=== PATIENT | male | born 1995 | race Caucasian/White ===

== ENCOUNTER 2016-07-17 16:14 | Emergency (ER) | payer MEDICAID ==
[2016-07-17 15:51] LABS: BASOPHIL% 0.9 % (0-2.5); EOSINOPHIL% 0.8 % (0.0-7.0); HEMATOCRIT 42.5 % (38.0-50.0); HEMOGLOBIN 14.2 gm/dL (13.0-16.0); LYMPHOCYTE# 1.5 X10e3 (1.0-3.5); LYMPHOCYTE% 30.3 % (17.0-45.0); MEAN CELL VOLUME 91.3 FL (83-96); MEAN CORPUSCULAR HEMOGLOBIN 30.6 PG (28-34); MEAN CORPUSCULAR HGB CONC 33.5 g/dL (30-36); MEAN PLATELET VOLUME 9.7 FL (6.5-11.5); MONOCYTE# 0.4 X10e3 (0-1.0); MONOCYTE% 7.3 % (3.0-12.0); NEUTROPHIL% 60.7 % (40-75); PLATELET COUNT 180 X10e3 (140-420); RED BLOOD COUNT 4.66 X10e (3.90-5.60); WHITE BLOOD COUNT 4.9 X10e3 (4.0-10.5)
[2016-07-17 15:52] LABS: ARTERIAL BLOOD GAS HCO3 27.2 mmol/L; ARTERIAL BLOOD GAS PCO2 47.4 mmHg (35.0-45.0)
[2016-07-17 15:53] LABS: ARTERIAL BLD GAS O2 SATURATION 53.1 % (90.0-100.0); ARTERIAL BLOOD GAS CARBOXY HB 2.5 %sat (0.0-9.0); ARTERIAL BLOOD GAS MET HB 1.8 %sat (0.0-2.0); ARTERIAL DRAW? NO
[2016-07-17 15:53] LABS: DIFF IND NO
[~2016-07-17 16:14] MED LIST: NOVOLOG100 U/M2 SUBQ; TRESIBA FL100 UNIT/1 SUBQ
[2016-07-17 16:15] LABS: ALBUMIN SERUM 4.7 g/dL (3.5-5.0); ALKALINE PHOSPHATASE 57 U/L (32-92); ALT (SGPT) 19 U/L (10-40); AST (SGOT) 23 U/L (10-42); BILIRUBIN, DIRECT 0.2 mg/dL (0.0-0.2); BILIRUBIN,INDIRECT 0.7 mg/dL (0.0-0.9); BILIRUBIN,TOTAL 0.9 mg/dL (0.2-2.0); BLOOD UREA NITROGEN 19 mg/dL (9-23); BUN/CREATININE RATIO 15.83; CALCIUM SERUM 8.9 mg/dL (8.4-10.2); CARBON DIOXIDE 27 mmol/L (22-31); CHLORIDE 100 mmol/L (100-111); CREATININE SERUM 1.2 mg/dL (0.6-1.4); GLOM FILT RATE Estimated 86.6 mL/min (>60); GLUCOSE FASTING 269 mg/dL (70-110); POTASSIUM 3.8 mmol/L (3.5-5.1); PROTEIN TOTAL SERUM 7.4 g/dL (6.0-8.3); SODIUM 137 mmol/L (135-145)
[2016-07-17 17:20] LABS: URINE APPEARANCE CLEAR; URINE BILIRUBIN NEG (NEG); URINE BLOOD NEG (NEG); URINE COLOR YELLOW; URINE GLUCOSE 300 MG/DL (NORM); URINE KETONE NEG (NEG); URINE LEUKOCYTE ESTERASE NEG (NEG); URINE NITRATE NEG (NEG); URINE PROTEIN NEG (NEG); URINE SPECIFIC GRAVITY 1.015 (1.003-1.035)
[2016-07-17 17:31] LABS: AMPHETAMINE NEG (NEG); BARBITURATES NEG (NEG); BENZODIAZEPINES NEG (NEG); COCAINE NEG (NEG); MARIJUANA POS (NEG); OPIATES NEG (NEG); TRICYCLIC ANTIDEPRESSANTS NEG (NEG); U METHADONE NEG (NEG)
[2016-07-17 17:33] LABS: MICRO INDICATED? NO
== END 2016-07-17 18:19 | disposition home or self-care (01) ==
LOC: SED 16:14
PROVIDERS: Emergency Medicine
DX: E11.65 Type 2 diabetes mellitus with hyperglycemia (principal); Z79.4 Long term (current) use of insulin; Z90.49 Acquired absence of other specified parts of digestive tract
CPT/HCPCS: 36415; 80048; 80076; 80307; 81003; 82010; 82803; 82947; 85025; 99283

== ENCOUNTER 2016-10-24 01:42 | Emergency (ER) | payer OTHER ==
[2016-10-24] MEDS ORDERED: NOVOLOG100 U/ML SUBQ (01:51)
[2016-10-24] MEDS ORDERED: TRESIBA FL100 UNIT/1 SUBQ (01:52)
== END 2016-10-24 03:56 | disposition home or self-care (01) ==
LOC: SED 01:42
DX: S61.213A Laceration without foreign body of left middle finger without damage to nail, initial encounter (principal); Z23 Encounter for immunization; W26.8XXA Contact with other sharp object(s), not elsewhere classified, initial encounter; Y92.9 Unspecified place or not applicable; E11.9 Type 2 diabetes mellitus without complications
CPT/HCPCS: 12001; 90471; 90715; 99283